=== PATIENT | female | born 1940 | race Caucasian/White ===

== ENCOUNTER 2018-06-13 17:28 | Emergency (ER) | payer MEDICARE ==
[2018-06-13 18:02] LABS: #Basophils 0.1 thou/uL (0.0-0.2); #Eosinphils 0.2 thou/uL (0.0-0.7); #Lymphocytes 3.7 thou/uL (1.20-3.40); #Monocytes 0.8 thou/uL (0.11-0.59); %Basophils 1.5 % (0.0-1.0); %Eosinophils 2.5 % (0.0-10.0); %Lymphocytes 41.4 % (21.0-51.0); %Monocytes 9.4 % (0.0-10.0); %Neutrophils 45.3 % (42.0-75.0); Hemoglobin 11.8 g/dL (12.0-16.0); Mean Corpuscular HGB CONC 34.2 g/dL (32.0-36.0); Mean Corpuscular Hemoglobin 30.4 pg (27.0-31.0); Mean Corpuscular Volume 88.9 fL (78.0-98.0); Platelet Count 336 thou/uL (130-400); RBC Distribution Width 15.1 % (11.5-14.5); Red Blood Cell (RBC) Count 3.88 mill/uL (4.20-5.40); White Blood Cell (WBC) Count 8.9 thou/uL (4.8-10.8)
[2018-06-13 18:22] LABS: ALT (SGPT) 19 U/L (8-55); AST (SGOT) 20 U/L (5-34); Alkaline Phosphatase 42 U/L (40-150); Anion Gap 13 mmol/L (10-20); BUN (Urea Nitrogen) 22 mg/dL (9.8-20.1); Bilirubin, Total 0.6 mg/dL (0.2-1.2); Calc. Creatinine Clearance 0 mL/min (70-130); Calcium 9.4 mg/dL (7.8-10.44); Carbon Dioxide 23 mmol/L (23-31); Chloride 104 mmol/L (98-107); Estimated GFR-MDRD 68; Globulin 2.6 g/dL (2.4-3.5); Glucose 91 mg/dL (83-110); Potassium 3.8 mmol/L (3.5-5.1); Protein, Total 6.6 g/dL (6.0-8.3); Sodium 136 mmol/L (136-145)
[2018-06-13 18:26] LABS: CKMB 1.2 ng/mL (0-6.6); Troponin I Less than 0.010 ng/mL (< 0.028)
== END 2018-06-13 20:10 | disposition left against medical advice (07) ==
LOC: ERS 17:28
DX: Z53.21 Procedure and treatment not carried out due to patient leaving prior to being seen by health care provider (principal)
CPT/HCPCS: 36415; 80053; 82553; 84484; 85025; 93005

== ENCOUNTER → 2024-05-03 | Outpatient (CLI) | payer MEDICARE | LOC: PET 09:30 | PROVIDERS: ATTEND Internal Medicine Hematology & Oncology | DX: R91.8 Other nonspecific abnormal finding of lung field (principal); J47.9 Bronchiectasis, uncomplicated | CPT/HCPCS: 78815; A9552 ==

== ENCOUNTER 2024-05-12 08:10 | Day surgery (SDC) | payer MEDICARE ==
[2024-05-12 08:37] LABS: #Basophils 0.11 10x3/uL (0.0-0.2); %Basophils 1.6 % (0.0-1.0); %Eosinophils 6.4 % (0.0-10.0); %Lymphocytes 32.9 % (21.0-51.0); %Monocytes 13.7 % (0.0-10.0); %Neutrophils 44.5 % (42.0-75.0); Hematocrit 41.4 % (36.0-47.0); Mean Corpuscular HGB CONC 33.8 g/dL (32.0-36.0); Mean Corpuscular Hemoglobin 32.6 pg (27.0-31.0); Mean Corpuscular Volume 96.5 fL (78.0-98.0); Mean Platelet Volume 8.9 fL (7.4-10.4); Platelet Count 274 10x3/uL (130-400); RBC Distribution Width 14.3 % (11.5-14.5); Red Blood Cell (RBC) Count 4.29 mill/uL (4.20-5.40)
[2024-05-12 08:48] LABS: PTT 38.8 sec (22.9-36.1)
[2024-05-12 09:23] VITALS: BP 176/83; TEMP 97.4
[2024-05-12] MEDS ORDERED: Lidocaine 1% w/Epinephrine 1:100K 20 ML VIAL ONE (09:33)
[2024-05-12] MEDS ORDERED: fentaNYL 50 mcg/mL 1 mL Vial ONE (09:33)
[2024-05-12] MEDS ORDERED: Midazolam HCl 2 mg/2 ml Vial ONE (09:33)
[2024-05-12] MEDS ORDERED: Sodium Bicarbonate 2.5 MEQ/5 ML SDV ONE (09:33)
[2024-05-12] MEDS ORDERED: hydrALAZINE 20 MG/ML VIAL ONE (10:31)
== END 2024-05-12 13:34 | disposition home or self-care (01) ==
LOC: CT 08:10
PROVIDERS: ATTEND Internal Medicine Hematology & Oncology
PROC: 0BBJ3ZX Excision of Left Lower Lung Lobe, Percutaneous Approach, Diagnostic (ICD-10-PCS; principal; 2024-05-12)
DX: R91.8 Other nonspecific abnormal finding of lung field (principal); I10 Essential (primary) hypertension; Z90.710 Acquired absence of both cervix and uterus; Z98.890 Other specified postprocedural states; Z79.899 Other long term (current) drug therapy; Z77.22 Contact with and (suspected) exposure to environmental tobacco smoke (acute) (chronic)
CPT/HCPCS: 32408; 71045; 71046; 77012; 85025; 85610; 85730; 88333; 88334; J0360; J2250; J3010; 36415; 88305; 88341; 88342; 88360

== ENCOUNTER 2024-11-06 09:19 | Outpatient (CLI) | payer MEDICARE ==
[2024-11-06] MEDS ORDERED: Iopamidol 370 76% 100 ML VIAL ONE (12:48)
== END 2024-11-06 09:20 | disposition home or self-care (01) ==
LOC: CT 09:19
PROVIDERS: ATTEND Radiology Radiation Oncology
DX: C34.32 Malignant neoplasm of lower lobe, left bronchus or lung (principal); R91.1 Solitary pulmonary nodule; J18.1 Lobar pneumonia, unspecified organism; J98.11 Atelectasis
CPT/HCPCS: 36415; 71260; 82565

== ENCOUNTER 2024-12-19 15:46 | Outpatient (CLI) | payer MEDICARE | END 2024-12-19 15:47 | disposition home or self-care (01) | LOC: RAD 15:46 | PROVIDERS: ATTEND Internal Medicine | DX: C34.32 Malignant neoplasm of lower lobe, left bronchus or lung (principal); R91.8 Other nonspecific abnormal finding of lung field | CPT/HCPCS: 71046 ==

== ENCOUNTER 2024-12-26 16:40 | Inpatient (IN) | payer MEDICARE ==
[~2024-12-26 16:40] MED LIST: Iopamidol-370 76% 500 ML MDV (1 ML CHARGE) ONE
[2024-12-26] MEDS ORDERED: Aspirin Chewable 81 MG TAB ONE (17:35)
[2024-12-26] MEDS ORDERED: dilTIAZem 25 MG/5 ML VIAL ONE (18:17)
[2024-12-26 18:32] LABS: #Basophils 0.04 10x3/uL (0.0-0.2); %Basophils 0.6 % (0.0-1.0); %Eosinophils 0.6 % (0.0-10.0); %Lymphocytes 15.4 % (21.0-51.0); %Monocytes 11.3 % (0.0-10.0); %Neutrophils 70.1 % (42.0-75.0); Hemoglobin 13.8 g/dL (12.0-16.0); Mean Corpuscular HGB CONC 33.7 g/dL (32.0-36.0); Mean Corpuscular Hemoglobin 31.6 pg (27.0-31.0); Mean Corpuscular Volume 93.8 fL (78.0-98.0); Mean Platelet Volume 8.8 fL (7.4-10.4); Platelet Count 211 10x3/uL (130-400); RBC Distribution Width 14.1 % (11.5-14.5); Red Blood Cell (RBC) Count 4.37 mill/uL (4.20-5.40)
[2024-12-26] MEDS ORDERED: Aspirin 300 MG Suppository ONE (18:38)
[2024-12-26 18:54] LABS: ALT (SGPT) 15 U/L (Less than 34); AST (SGOT) 24 U/L (11-34); Albumin 3.5 g/dL (3.1-4.5); Alkaline Phosphatase 45 U/L (40-110); Anion Gap 13 mmol/L (10-20); BUN (Urea Nitrogen) 15 mg/dL (9.8-20.1); Bilirubin, Total 0.6 mg/dL (0.3-1.2); Calc. Creatinine Clearance 0 mL/min (70-130); Calcium 8.7 mg/dL (7.8-10.44); Carbon Dioxide 22 mmol/L (23-31); Chloride 105 mmol/L (98-107); Estimated GFR 73; Globulin 3.2 g/dL (2.4-3.5); Glucose 102 mg/dL (83-110); Protein, Total 6.7 g/dL (5.8-8.1); Sodium 136 mmol/L (136-145)
[2024-12-26 18:55] LABS: Troponin I Less than 0.010 ng/mL (< 0.028)
[2024-12-26] MEDS ORDERED: Acetaminophen 325 MG TAB PO PRN (20:08)
[2024-12-26] MEDS ORDERED: Ondansetron PF 4 MG/2 ML Vial IVP PRN (20:08)
[2024-12-26] MEDS: Carvedilol 3.125 MG TAB PO SCH (22:23)
[2024-12-26] MEDS: Ranolazine ER 500 MG TAB PO SCH (22:23)
[2024-12-26] MEDS: Atorvastatin Calcium 40 MG TAB PO SCH (22:24)
[2024-12-27 02:27] VITALS: BMI 20.9
[2024-12-27 04:03] LABS: #Basophils 0.05 10x3/uL (0.0-0.2); %Basophils 0.8 % (0.0-1.0); %Eosinophils 0.8 % (0.0-10.0); %Lymphocytes 20.4 % (21.0-51.0); %Monocytes 12.4 % (0.0-10.0); %Neutrophils 62.2 % (42.0-75.0); Hematocrit 39.5 % (36.0-47.0); Hemoglobin 13.3 g/dL (12.0-16.0); Mean Corpuscular HGB CONC 33.7 g/dL (32.0-36.0); Mean Corpuscular Hemoglobin 31.7 pg (27.0-31.0); Mean Platelet Volume 8.8 fL (7.4-10.4); Platelet Count 211 10x3/uL (130-400); RBC Distribution Width 14.2 % (11.5-14.5)
[2024-12-27] MEDS: hydrALAZINE 20 MG/ML VIAL SLOW IVP PRN (04:14)
[2024-12-27 04:23] LABS: Anion Gap 14 mmol/L (10-20); BUN (Urea Nitrogen) 11 mg/dL (9.8-20.1); Calc. Creatinine Clearance 51 mL/min (70-130); Calcium 8.7 mg/dL (7.8-10.44); Carbon Dioxide 23 mmol/L (23-31); Cardiac Risk 3.5 (Less than 4.5); Chloride 106 mmol/L (98-107); Cholesterol 168 mg/dl (< 200 Desired); Estimated GFR 87; Glucose 101 mg/dL (83-110); HDL Cholesterol 48 mg/dL (>60 Neg Risk); LDL Cholesterol, Calculated 103 mg/dL; Sodium 139 mmol/L (136-145); Triglycerides 87 mg/dL (Less than 150)
[2024-12-27] MEDS ORDERED: Isosorbide Mononitrate 60 MG ER.TAB PO SCH (09:00)
[2024-12-27] MEDS: Cyanocobalamin (Vitamin B-12) 1,000 MCG TAB PO SCH (13:30)
[2024-12-27] MEDS: Aspirin 81 mg Enteric Coated Tablet PO SCH (13:30)
[2024-12-27] MEDS: FLU (Fluad Triv) TS24-25 (65UP)/MF59C/PF 45 MCG/0.5 ML Syringe IM ONE (13:30)
[2024-12-29 04:10] LABS: Hematocrit 39.9 % (36.0-47.0); Hemoglobin 13.6 g/dL (12.0-16.0); Mean Corpuscular HGB CONC 34.1 g/dL (32.0-36.0); Mean Corpuscular Hemoglobin 31.6 pg (27.0-31.0); Mean Corpuscular Volume 92.6 fL (78.0-98.0); Mean Platelet Volume 9.1 fL (7.4-10.4); Platelet Count 247 10x3/uL (130-400); RBC Distribution Width 14.3 % (11.5-14.5); Red Blood Cell (RBC) Count 4.31 mill/uL (4.20-5.40)
[2024-12-29 04:40] LABS: Anion Gap 16 mmol/L (10-20); BUN (Urea Nitrogen) 21 mg/dL (9.8-20.1); Calc. Creatinine Clearance 53 mL/min (70-130); Calcium 8.8 mg/dL (7.8-10.44); Carbon Dioxide 20 mmol/L (23-31); Chloride 107 mmol/L (98-107); Estimated GFR 88; Glucose 118 mg/dL (83-110); Potassium 3.5 mmol/L (3.5-5.1); Sodium 139 mmol/L (136-145)
[2024-12-29] MEDS: Aspirin Chewable 81 MG TAB PO SCH (10:17)
[2024-12-29] MEDS: Isosorbide Mononitrate 60 MG ER.TAB PO SCH (10:18)
[2024-12-29 15:13] VITALS: BMI 20.9
[2024-12-29] MEDS: Ampicillin/Sulbactam 3 GM in Sodium Chloride 0.9% 100 ML IVPB SCH ×3 (15:48→21:18)
[2024-12-30] MEDS: Guaifenesin DM 100-10/5 ML UDCUP PO PRN (04:49)
[2024-12-30 20:35] VITALS: BP 147/68; TEMP 97.6
== END 2024-12-30 17:19 | DRG 65 ==
LOC: ERS 16:40 → 2SE 19:51 → OBSVTOIN 12-27 14:25
PROVIDERS: ADMIT Internal Medicine; ATTEND Internal Medicine
DX: I63.9 Cerebral infarction, unspecified (principal); C34.90 Malignant neoplasm of unspecified part of unspecified bronchus or lung; R29.810 Facial weakness; R47.81 Slurred speech; J10.1 Influenza due to other identified influenza virus with other respiratory manifestations; I25.10 Atherosclerotic heart disease of native coronary artery without angina pectoris; I10 Essential (primary) hypertension; R47.1 Dysarthria and anarthria; R47.01 Aphasia; K21.9 Gastro-esophageal reflux disease without esophagitis; Z95.1 Presence of aortocoronary bypass graft; Z95.5 Presence of coronary angioplasty implant and graft; Z95.0 Presence of cardiac pacemaker; Z90.79 Acquired absence of other genital organ(s); Z79.899 Other long term (current) drug therapy
CPT/HCPCS: 36415; 36416; 70450; 70496; 70498; 71045; 74230; 80048; 80053; 80061; 83880; 84484; 85025; 85027; 87428; 93005; 93306; 96374; 96375; G0378; J0295; J0360; Q9967